=== PATIENT | female | born 1965 | race Hispanic/Latino ===

== ENCOUNTER → 2018-01-14 | Day surgery (SDC) | payer BC ==
[~2018-01-14] MED LIST: BENEFIBER240 GM PO; BIOTIN PO; BYSTOLIC10 MG PO; CETIRIZINE HCL10 M1 PO; CYMBALTA60 MG PO; DEXILANT30 MG PO; DEXILANT60 MG PO; DICYCLOMINE HCL20 MG PO; FENTANYL CITRATE/PF 100MCG/2 ML INJ ONE; HYOSCYAMINE SULFATE 0.5 MG/ML AMP ONE; LYRICA50 MG PO; MIDAZOLAM HCL 2 MG/2 ML VIAL ONE; NASONEX17 GM; NORCO 10-325 T1 EACH PO; PROPOFOL IV EMULSION 10 MG/ML 50 ML VIAL ONE; SUCRALFATE1 GM PO; TRAZODONE HCL50 MG PO
--- NOTE | 2018-01-14 14:48 | Operative Report ---
DATE OF PROCEDURE: January 14, 2018 REFERRING PHYSICIAN: Dr. Katya Moseley. PROCEDURE PERFORMED: Colonoscopy and polypectomy. INDICATIONS FOR COLONOSCOPY: Colorectal cancer screening, personal history of colon polyps. MEDICATION: Patient was done under MAC. Please see anesthesiologist's note. PROCEDURE: With patient in the left lateral decubitus position, the flexible fiberoptic Olympus colonoscope was inserted into the rectum with ease and advanced all the way to the cecum. One polyp was hot biopsied from the cecum. The scope was then withdrawn slowly, and mucosa overlying the ascending and the transverse appeared to be within normal limits. One polyp was snared from the descending. Two polyps were snared and 1 polyp was hot biopsied from the sigmoid colon. One polyp was hot biopsied from the rectum. The scope was then retroflexed into the distal rectum, and the area around the dentate line appeared to be within normal limits. The scope was then straightened out. It was subsequently withdrawn. Patient tolerated the procedure well. IMPRESSION: 1. Cecal polyp hot biopsied. 2. Descending colon polyp snared. 3. Sigmoid colon polyps times 3, 2 snared, 1 hot biopsied. 4. Rectal polyp hot biopsied. PLAN: Follow up histology. Initiate high-fiber low-fat diet. Initiate high-fiber supplement. Patient will need a followup colonoscopy in 3 years. Job#: [id number] EV cc:KATYA MOSELEY MD
== END | disposition home or self-care (01) ==
LOC: OR 11:43
PROVIDERS: ATTEND Internal Medicine Gastroenterology
DX: Z12.11 Encounter for screening for malignant neoplasm of colon (principal); D12.5 Benign neoplasm of sigmoid colon; K62.1 Rectal polyp; K59.00 Constipation, unspecified; K58.9 Irritable bowel syndrome, unspecified; K64.8 Other hemorrhoids; K20.8 Other esophagitis; K29.70 Gastritis, unspecified, without bleeding; K21.9 Gastro-esophageal reflux disease without esophagitis; I10 Essential (primary) hypertension; I44.0 Atrioventricular block, first degree; R00.1 Bradycardia, unspecified; G47.33 Obstructive sleep apnea (adult) (pediatric); F32.9 Major depressive disorder, single episode, unspecified; F17.210 Nicotine dependence, cigarettes, uncomplicated; Z01.810 Encounter for preprocedural cardiovascular examination
CPT/HCPCS: 45384; 45385; 93005; J1980; J2250

== ENCOUNTER → 2022-09-11 | Outpatient (CLI) | payer BC, MEDICARE ==
[~2022-09-11] MED LIST changes: +AMLODIPINE BESYL5 MG PO; -FENTANYL CITRATE/PF 100MCG/2 ML INJ ONE; -HYOSCYAMINE SULFATE 0.5 MG/ML AMP ONE; +K FORCE PO; -MIDAZOLAM HCL 2 MG/2 ML VIAL ONE; +NORCO 7.5-3251 EACH PO; +OXYCONTIN10 MG PO; -PROPOFOL IV EMULSION 10 MG/ML 50 ML VIAL ONE; +TIZANIDINE HCL4 MG PO
== END ==
LOC: CT 13:44
PROVIDERS: ATTEND Internal Medicine Critical Care Medicine
DX: R09.02 Hypoxemia (principal); J44.9 Chronic obstructive pulmonary disease, unspecified; K21.9 Gastro-esophageal reflux disease without esophagitis; J30.9 Allergic rhinitis, unspecified; I10 Essential (primary) hypertension; G47.00 Insomnia, unspecified; G47.33 Obstructive sleep apnea (adult) (pediatric)
CPT/HCPCS: 71250